=== PATIENT | female | born 1940 | race Hispanic/Latino ===

== ENCOUNTER → 2024-03-30 | Outpatient (REF) | payer OTHER | LOC: US 15:37 | PROVIDERS: ATTEND Nurse Practitioner Family | DX: R10.9 Unspecified abdominal pain (principal); R14.0 Abdominal distension (gaseous); R19.7 Diarrhea, unspecified; K21.9 Gastro-esophageal reflux disease without esophagitis | CPT/HCPCS: 76700; 76856 ==

== ENCOUNTER → 2024-05-14 | Outpatient (REF) | payer OTHER | LOC: DX 11:30 | PROVIDERS: ATTEND Nurse Practitioner Family | DX: R14.0 Abdominal distension (gaseous) (principal); K21.9 Gastro-esophageal reflux disease without esophagitis | CPT/HCPCS: 74246; 74250 ==